=== PATIENT | female | born 1965 | race Caucasian/White ===

== ENCOUNTER 2017-12-16 15:37 | Outpatient (CLI) | payer OTHER ==
--- NOTE | 2017-12-16 21:07 | MRI ---
MRI OF LEFT KNEE PERFORMED WITHOUT CONTRAST ENHANCEMENT: 12/16/17 HISTORY: Left knee pain. Previous knee arthroscopy. The anterior cruciate ligament shows some increased signal change suggesting some mucoid degeneration but appears intact. Posterior cruciate ligament is unremarkable. The lateral meniscus is normal in shape and appearance. The free edge of the posterior horn of the me dial meniscus is slightly irregular and truncated in appearance and there is a small undersurface tea r associated with the body of the medial meniscus with meniscal subluxation. There is also some edema changes on the medial edge of the tibia. The medial and lateral collateral ligament, iliotibial band regions are unremarkable. There is some fissuring involving the apex of the patellar articular cartilage. Medial and lateral pa tellar retinaculum and quadriceps and patellar tendons are normal. There is some edema changes near t he tibial insertion of the anterior cruciate ligament. Changes are probably on the basis some element of degeneration of the ACL in conjunction with the medial compartment arthritis. IMPRESSION: 1. Free edge blunting to the posterior horn of the medial meniscus with meniscal protrusion of t he body of the meniscus and an undersurface tear in this region. I am not certain what portion of the posterior horn changes are related to meniscectomy change but the body changes are felt to be more a cute in nature. There is associated medial compartment arthritis. 2. Mucoid degeneration of the ACL and particularly pronounced at the level of the anterior media l band insertion onto the tibia. The edema changes could be related to abnormal stresses in this emil on related to the medial compartment arthritis although this is not fluid density. This could indicat e some early partial tearing of the anterior medial bundle fibers. POS: EMILIANA
== END 2017-12-16 15:38 | disposition home or self-care (01) ==
LOC: TBSIIMAG 15:37
PROVIDERS: ATTEND Orthopaedic Surgery
DX: M25.562 Pain in left knee (principal); S83.242A Other tear of medial meniscus, current injury, left knee, initial encounter

== ENCOUNTER 2017-12-21 17:19 | Outpatient (CLI) | payer OTHER ==
[2017-12-21 17:41] LABS: #Basophils 0.1 thou/uL (0.0-0.2); #Eosinphils 0.2 thou/uL (0.0-0.7); #Lymphocytes 2.2 thou/uL (1.20-3.40); #Monocytes 0.4 thou/uL (0.11-0.59); #Neutrophils 2.7 thou/uL (1.40-6.50); %Basophils 1.7 % (0.0-1.0); %Eosinophils 3.8 % (0.0-10.0); %Lymphocytes 38.6 % (21.0-51.0); %Monocytes 7.4 % (0.0-10.0); %Neutrophils 48.4 % (42.0-75.0); Hemoglobin 13.1 g/dL (12.0-16.0); Mean Corpuscular HGB CONC 33.8 g/dL (32.0-36.0); Mean Corpuscular Hemoglobin 29.1 pg (27.0-31.0); Mean Platelet Volume 7.3 fL (7.4-10.4); Platelet Count 262 thou/uL (130-400); RBC Distribution Width 12.9 % (11.5-14.5); Red Blood Cell (RBC) Count 4.51 mill/uL (4.20-5.40); White Blood Cell (WBC) Count 5.6 thou/uL (4.8-10.8)
[2017-12-21 18:11] LABS: Anion Gap 11 mmol/L (10-20); BUN (Urea Nitrogen) 11 mg/dL (9.8-20.1); Calc. Creatinine Clearance 0 mL/min (70-130); Calcium 9.3 mg/dL (7.8-10.44); Carbon Dioxide 27 mmol/L (22-29); Chloride 106 mmol/L (98-107); Estimated GFR-MDRD 77; Glucose 94 mg/dL (70-105); Potassium 4.1 mmol/L (3.5-5.1); Sodium 140 mmol/L (136-145)
== END 2017-12-21 17:20 | disposition home or self-care (01) ==
LOC: LABBT 17:19
PROVIDERS: ATTEND Orthopaedic Surgery
DX: Z01.818 Encounter for other preprocedural examination (principal); S83.207A Unspecified tear of unspecified meniscus, current injury, left knee, initial encounter
CPT/HCPCS: 80048; 85025; 93005; 93010

== ENCOUNTER 2017-12-23 05:32 | Day surgery (SDC) | payer OTHER ==
[2017-12-21 17:41] VITALS: BMI 29.5
[2017-12-23] MEDS ORDERED: CEFAZOLIN/Water 2 GM/20 ML SYRINGE ONE (05:59)
[2017-12-23] MEDS ORDERED: Lidocaine 2% w/Epinephrine 1:200K 20 ML VIAL ONE (06:16)
[2017-12-23] MEDS ORDERED: Bupivacaine PF 0.5% 30 ML VIAL ONE (06:17)
[2017-12-23] MEDS ORDERED: Propofol 500 MG/50 ML VIAL ONE ×2 (06:23→06:24)
[2017-12-23] MEDS ORDERED: Scopolamine 1.5 mg/72 hour Patch ONE (06:49)
[2017-12-23] MEDS ORDERED: Fentanyl 100 MCG/2 ML VIAL ONE (07:04)
--- NOTE | 2017-12-23 08:40 | OP ---
DATE OF PROCEDURE: 12/23/2017 PREOPERATIVE DIAGNOSIS: Left knee medial meniscal tear. POSTOPERATIVE DIAGNOSES: 1. Left knee medial meniscal tear. 2. The patient has significant area of grade 3 and 4 cartilage loss on the medial femoral condyle an d the trochlea. PROCEDURE: Left knee arthroscopy with partial medial meniscectomy. SURGEON: Sy Shetty M.D. PROTEIN SCIENTIST: None. BLOOD LOSS: Minimal. COMPLICATIONS: None. DISPOSITION: She did have general anesthetic as well as a local knee block. She went to the recover y room in stable condition. INDICATIONS: Vivian is an active 52-year-old female who comes in complaining of catching and signific ant pain in the medial area of the knee. An MRI found her to have a medial meniscus tear with a flap of tissue extruded into the gutter and at this time, she opted to have surgery. OPERATIVE PROCEDURE: After all appropriate consent forms were explained and signed, she was taken ba ck to the operating room and at this time was given general anesthetic. Once anesthesia was appropri ate, the tourniquet was placed on her left thigh and the leg was then prepped and draped in standard surgical fashion after placing it in an arthroscopic leg baeza. The limb was exsanguinated, tourniq uet was taken up to 300 mmHg. An inferolateral portal was established and the scope was placed into the knee joint. A needle localization technique was then used to make a medial working portal. Diag nostic arthroscopy commenced in the notch. The ACL and PCL were found to be intact. There was a sma ll cyst at the base of ACL. This was removed with the shaver. The femoral condyle was evaluated and the previous grade 4 lesion had filled in fully with fibrocartilaginous tissue and still was filled in and outlined nicely. There was no unstable chondral flaps in this area. The medial meniscus was evaluated and found to have a degenerative tear of essentially the entire posterior horn. She had a small flap of tissue in the posterior lateral aspect of the medial meniscus with a flap going up into the posterior notch. She also had a flap of tissue where the posterior horn and body meet and a fla p of tissue went down into the recess between the meniscal tissue and the tibia. Partial meniscectom y was performed with meniscal biter and shaver, removing all those tissues. Once this was done, a st able base was noted. The lateral compartment was evaluated and overall was found to be in good condi tion with intact meniscus femoral and tibial cartilage. The gutters were swept through and no loose bodies were noted. Small osteophyte was noted off the medial femur. The patellofemoral joint had a fair amount of scar tissue along the inferior pole of patella. This was debrided. It was noted that the patient had a large central area of grade 3 and 4 chondral wear which had been filled in with a fibrocartilaginous tissue on the trochlea. The patella had a small amount of crabmeat, but overall w as in pretty good condition. There was some scar tissue noted in the suprapatellar pouch and at this time, the scope was removed, knee was drained. Portals were closed with simple nylon stitch. A bul ky sterile dressing was applied and the tourniquet was let down. Toes pinked up nicely. The patient was awakened and taken to the recovery room in stable condition. All counts were correct at the end of the case. She received preoperative IV antibiotics.
[2017-12-23] MEDS ORDERED: CeleCOXIB 100 MG CAP ONE (09:05)
[2017-12-23] MEDS ORDERED: Lidocaine 1% PF 5 ML VIAL ONE (16:25)
[2017-12-23] MEDS ORDERED: Ondansetron PF 4 MG/2 ML Vial ONE (16:25)
[2017-12-23] MEDS ORDERED: PROPOFOL 200 MG/20 ML VIAL ONE (16:25)
== END 2017-12-23 09:34 | disposition home or self-care (01) ==
LOC: SDC 05:32
PROVIDERS: ATTEND Orthopaedic Surgery
PROC: 0SBD4ZZ Excision of Left Knee Joint, Percutaneous Endoscopic Approach (ICD-10-PCS; principal; 2017-12-23)
DX: S83.242A Other tear of medial meniscus, current injury, left knee, initial encounter (principal); Z98.51 Tubal ligation status; Z90.49 Acquired absence of other specified parts of digestive tract; Z98.890 Other specified postprocedural states
CPT/HCPCS: G8978-GP-CJ; G8979-GP-CJ; G8980-GP-CJ; J2001; J2405; J2704; J3010; S0020

== ENCOUNTER 2020-09-17 08:47 | Outpatient (CLI) | payer OTHER ==
[2020-09-17] MEDS ORDERED: Gadobenate Dimeglumine 529 MG/1 ML (20ML VIAL) ONE (09:15)
[2020-09-17] MEDS ORDERED: Iopamidol 300 61% 50 ML VIAL FS ONE (09:15)
[2020-09-17] MEDS ORDERED: Lidocaine 1% PF 10 ML AMP ONE (09:15)
[2020-09-17] MEDS ORDERED: EPINEPHrine 1 MG/ML AMP ONE (09:15)
--- NOTE | 2020-09-17 10:16 | RAD ---
PROCEDURE: Fluoroscopic right shoulder arthrogram INDICATION: Right shoulder pain COMPARISON: None TECHNIQUE: Informed consent was obtained. Preprocedure painter airbrush images were obtained of the right should er. The patient was placed supine on the fluoroscopic table. A timeout was performed. Site overlying the right shoulder was prepped and draped in the usual sterile fashion. Buffered 1% lidocai ne was administered into the overlying subcutaneous tissues. Under fluoroscopic guidance, a 22-gauge spinal needle was guided down into the right glenohumeral joint. Confirmation of needle loca lization was confirmed by injecting 1 cc of the buffered 1% lidocaine. Following this 7 6060of the dilute Multihance solution MR Mix: 23.5 mL solution containing 10 mL of 0.008 dilution of Multihance, 8 mL Isovue 300, 5 mL 1% Lidocaine, 0.5 mL of 1mg/mL Epinephrine was injected. Contrast was visualized within the right glenohumeral joint with fluoroscopy. The needle was removed. The injectio n site was then cleansed and bandage. The patient tolerated the injection without difficulty. Fluoroscopic time: 0.3minutes Fluoroscopic dose: 17.3mcg/sq m FINDINGS: Small calcification is seen involving the soft tissues overlying the right greater tuberosi ty suspicious for focus of calcific tendinosis. There is mild right AC joint osteoarthrosis. Visualized right lung is clear. IMPRESSION: Successful right shoulder arthrogram. The patient is to have a follow-up [facility]arthrogram of the [facility]. Please see this report for further details. Calcific tendinosis of the right shoulder. Mild AC joint of the right shoulder.
--- NOTE | 2020-09-17 11:43 | MRI ---
EXAM: MRI Upper Ext Jt Rt W Con DATE: 09/17/2020 10:30 AM INDICATION: Right shoulder pain concern for glenoid labral injury COMPARISON: None. FINDING: There is a full-thickness tear involving the anterior superior, superior, posterior superio r and posterior glenoid labrum extending from approximately the 2:00 through the 8:00 position. There is tear extension into the biceps anchor complex and proximal long head of biceps tendon, best seen on image 8 of series 7. The anterior inferior glenohumeral labral ligamentous complex is intact. The glenoid articular surface is normal-appearing. There are numerous subchondral cystlike ab normalities involving the posterior greater tuberosity. The rotator cuff is intact. Small focus of calcification is seen in the posterior supraspinatus measuring 6 mm without surrounding inflammatory change. Tiny amount of fluid is seen within the subacromial subdeltoid space. There is mild AC joint osteoarthrosis with an inferior projecting spur and osteophyte off the distal clavicle causing mild encroachment on the subjacent supraspinatus. The biceps tendon is located within the bicipital groove. IMPRESSION: 1. Large SLAP tear extending from approximately the 2:00 to the 8:00 position with tear extension int o the biceps anchor complex and proximal long head of the biceps tendon. 2. Calcific tendinosis of the posterior supraspinatus tendon, near the footprint. 3. Mild AC joint osteoarthrosis with mild encroachment on the subjacent supraspinatus.
[2020-09-17] MEDS ORDERED: Magnevist 469MG/ML 20 ML VIAL ONE (14:37)
== END 2020-09-17 08:48 | disposition home or self-care (01) ==
LOC: RAD 08:47
PROVIDERS: ATTEND Orthopaedic Surgery
DX: S43.431A Superior glenoid labrum lesion of right shoulder, initial encounter (principal); M19.011 Primary osteoarthritis, right shoulder; M67.813 Other specified disorders of tendon, right shoulder
CPT/HCPCS: 23350; A9577; A9579; J0171; J2001; Q9967

== ENCOUNTER 2020-11-18 08:12 | Outpatient (CLI) | payer OTHER ==
[2020-11-18 18:32] LABS: #Basophils 0.1 10x3/uL (0.0-0.2); #Eosinphils 0.2 10x3/uL (0.0-0.5); #Monocytes 0.4 10x3/uL (0.0-1.1); %Basophils 0.8 % (0.0-2.0); %Eosinophils 2.1 % (0.0-6.0); %Lymphocytes 37.1 % (18.0-47.0); %Monocytes 5.5 % (0.0-10.0); %Neutrophils 54.2 % (40.0-75.0); Hemoglobin 12.9 g/dL (12.0-16.0); Mean Corpuscular HGB CONC 32.7 G/DL (32.0-36.0); Mean Corpuscular Hemoglobin 28.7 PG (27.0-33.0); Mean Corpuscular Volume 87.8 fl (80.0-100.0); Mean Platelet Volume 10.4 fl (7.4-10.4); Platelet Count 249 10x3/uL (130-400); RBC Distribution Width 13.3 % (11.5-14.5); Red Blood Cell (RBC) Count 4.49 10x6/uL (3.90-5.20); White Blood Cell (WBC) Count 7.3 10x3/uL (4.5-11.0)
[2020-11-18 18:52] LABS: Anion Gap 13 mmol/L (10-20); BUN (Urea Nitrogen) 8 mg/dL (9.8-20.1); Calc. Creatinine Clearance 0 mL/min (70-130); Calcium 9.3 mg/dL (7.8-10.44); Carbon Dioxide 27 mmol/L (22-29); Chloride 105 mmol/L (98-107); Glucose 92 mg/dL (70-105); Sodium 141 mmol/L (136-145)
[2020-11-19 06:07] LABS: SARS-CoV-2 MS2 Positive; SARS-CoV-2 N Gene Negative; SARS-CoV-2 S Gene Negative; SARS-CoV-2 by NAA Not Detected (NotDetected); SARS-CoV-2 orf1ab Negative
== END 2020-11-18 08:13 | disposition home or self-care (01) ==
LOC: LABBT 08:12
PROVIDERS: ATTEND Orthopaedic Surgery
DX: Z01.818 Encounter for other preprocedural examination (principal); Z20.822 Contact with and (suspected) exposure to COVID-19; M24.111 Other articular cartilage disorders, right shoulder
CPT/HCPCS: 80048; 85025; 87635; 93005; 93010; U0003

== ENCOUNTER 2020-11-21 06:07 | Day surgery (SDC) | payer OTHER ==
[2020-11-21] MEDS ORDERED: Bupivacaine 0.25% HCL 30 ML VIAL ONE (06:44)
[2020-11-21] MEDS ORDERED: EPINEPHrine 1 MG/ML AMP ONE (06:44)
[2020-11-21] MEDS ORDERED: Sodium Chloride 0.9% 10 ML ONE (06:55)
[2020-11-21] MEDS ORDERED: Lidocaine 1% (PF) 30 ML VIAL ONE (06:55)
[2020-11-21] MEDS ORDERED: Midazolam HCl 2 mg/2 ml Vial ONE (06:55)
[2020-11-21] MEDS ORDERED: Fentanyl 100 MCG/2 ML VIAL ONE (06:55)
[2020-11-21] MEDS ORDERED: Fentanyl 100 MCG/2 ML VIAL IV PRN (08:10)
[2020-11-21] MEDS ORDERED: Ketorolac Tromethamine 30 MG/ML VIAL IVP PRN (08:15)
[2020-11-21] MEDS ORDERED: Ropivacaine 0.2% 550 ML 550 ML NERVE BLCK SCH (08:15)
[2020-11-21] MEDS ORDERED: Promethazine HCl 25 MG/ML VIAL IM PRN (08:15)
[2020-11-21] MEDS ORDERED: Ondansetron PF 4 MG/2 ML Vial IVP PRN (08:15)
[2020-11-21] MEDS ORDERED: HYDROcodone/Acetaminophen 10/325 mg Tablet PO PRN ×2 (08:15)
[2020-11-21] MEDS ORDERED: traMADol HCl 50 MG TAB PO PRN ×2 (08:15)
[2020-11-21] MEDS ORDERED: Zolpidem Tartrate 5 MG TAB PO PRN (08:15)
[2020-11-21] MEDS ORDERED: Ondansetron PF 4 MG/2 ML Vial ONE (09:16)
[2020-11-21] MEDS ORDERED: Ropivacaine 0.5% HCl/PF (150 MG/30 ML VIAL) ONE (09:16)
[2020-11-21] MEDS ORDERED: PROPOFOL 200 MG/20 ML VIAL ONE (09:16)
[2020-11-21] MEDS ORDERED: Ketorolac Tromethamine 30 MG/ML VIAL ONE (09:16)
[2020-11-21] MEDS ORDERED: Rocuronium Bromide 10 MG/ML (10ML VIAL) ONE (09:16)
--- NOTE | 2020-11-21 22:06 | OP ---
DATE OF PROCEDURE: 11/21/2020 PREOPERATIVE DIAGNOSIS: Right shoulder degenerative labral tear with biceps instability and acromioclavicular joint arthritis. POSTOPERATIVE DIAGNOSES: 1. Acromioclavicular joint arthritis. 2. Degenerative labral tear to include superior and posterior labrum with associated biceps instability. 3. Small partial undersurface tear of the supraspinatus amounting to less than 5% of the tendon. 4. Impingement. PROCEDURES PERFORMED: 1. Right shoulder arthroscopy with debridement and shaving of partial rotator cuff tear as well as degenerative labral tear. 2. Subacromial decompression. 3. Open distal clavicle excision. 4. Open biceps tenodesis. ASSESSMENT: Shakeel Campo PA-C. The clinic assistant surgeon was present throughout the distal clavicle resection and open biceps tenodesis portions of the procedure. He was present in performing distal clavicle excision as well as the open biceps tenodesis. We then closed all surgical wounds. BLOOD LOSS: 30 mL. ANESTHESIA: The patient had general anesthetic as well as preoperative block. IMPLANT: A 7 x 23 Bio[employer]posite Bio-Tenodesis screw. DISPOSITION: She did go to recovery room in stable condition. INDICATIONS: A 55-year-old active female who failed nonoperative treatment for shoulder problem and at this time, she is willing and wanted to have surgery on the shoulder. DESCRIPTION OF PROCEDURE: After all appropriate consent forms were explained and signed, she was taken to the operative room and at this time was given general anesthetic. She was rolled into the left lateral decubitus position. All bony prominences were well padded. The right shoulder and upper extremity were prepped and draped in standard surgical fashion. Bony anatomical landmarks were then drawn out. The subacromial space was infiltrated with Marcaine with epinephrine. Posterior portal was then established. Scope was placed into the shoulder joint. Anterior working portal was made using a needle localization technique. Diagnostic arthroscopy commenced and at this time, a small partial undersurface tear of the leading edge supraspinatus was noted. At this time, shaver was used to debride this small tear. The articular surface of the humeral head and glenoid were in good condition. X-ray pouch showed no loose bodies. The subscapularis was found to be intact. The entire superior labrum was found to have degenerative tearing and the labrum was atretic in appearance. This tearing continued posteriorly and at the posterior inferior angle at approximately 7 o'clock, there was traumatic lesion where a chunk of the labrum had balled up from what appeared to have been a previous injury. There was an associated injury to the cartilage on the humeral head in this area and I would engage in range of motion. Combination of shaver and [employer] was used to debride the labrum back to stable base. Once this was done, an 18-gauge needle was used to martinez the biceps tendon and place the stitch through it. The arthroscopic shaver was used to cut the biceps off its labral insertion superiorly. This was gently debrided. At this time, the scope was repositioned into the subacromial space. A lateral working portal was made and used to remove the bursa from off the underlying rotator cuff. The rotator cuff was found to be intact. The [employer] and shaver were used to perform small bony decompression and at this time, we also were able to make the AC joint. There was significant amount of calcific tissue and some small calcific loose bodies in the inferior portion of the AC joint that were cleaned out and removed with the [employer] and the shaver. It was felt at this time the distal clavicle excision was necessary. The needle was used to jojo the AC joint. The scope was removed and the shoulder was drained. A 15 blade was used to make an incision obliquely over the AC joint. Bovie was used to coagulate any brisk venous bleeding. Full-thickness periosteal flaps were taken to expose the AC joint. Hohmann retractors were placed anterior and posterior, and an oscillating saw was used to remove 1 cm of distal clavicle. A rasp was used to debride the edges and smooth off the bony edges. A small amount of bone wax was placed on the bleeding cancellous bone. The wound was thoroughly irrigated and dried. Multiple deep Vicryl sutures were then used to close our periosteal sleeve. 2-0 Vicryl were used to close subdermally. We then turned our attention to the biceps tenodesis. A 15 blade was again used to make a small incision down through skin. Bovie was used to coagulate any brisk venous bleeding. Deltoid fascia was incised sharply, and finger dissection was used to incise the deltoid in line with its fibers to get down to the underlying transverse humeral ligament. Transverse humeral ligament was incised and opened back exposing the biceps tendon. This was pulled onto the wound. The bicipital groove was cleaned out and any excessive venous bleeding was coagulated. We then sutured the biceps tendon, cutting off and removing from the field the intra-articular portion of the biceps tendon. We then placed our pin, reamed with a 7 mm reamer to a depth of 25, and placed a [employer] 7 x 23 Bio-Tenodesis screw. Sutures were tied over top of this in standard fashion. We thoroughly irrigated and dried. We then allowed the deltoid to close upon itself. A running Vicryl was used to close our deltoid fascia. 2-0 Vicryl and nylon sutures were used to close this incision. Distal clavicle excision was then closed with nylon sutures as well. Simple stitches were used to close our portals. Bulky sterile dressing was applied. The patient was then awakened, taken to recovery room in stable condition. All counts were correct at the end of the case. She did receive preoperative IV antibiotics. Job ID: [id number]
== END 2020-11-21 12:42 | disposition home or self-care (01) ==
LOC: SDC 06:07
PROVIDERS: ATTEND Orthopaedic Surgery
PROC: 0PB90ZZ Excision of Right Clavicle, Open Approach (ICD-10-PCS; principal; 2020-11-21)
PROC: 0RNJ4ZZ Release Right Shoulder Joint, Percutaneous Endoscopic Approach (ICD-10-PCS; principal; 2020-11-21)
PROC: 0LS30ZZ Reposition Right Upper Arm Tendon, Open Approach (ICD-10-PCS; principal; 2020-11-21)
PROC: 0LQ14ZZ Repair Right Shoulder Tendon, Percutaneous Endoscopic Approach (ICD-10-PCS; principal; 2020-11-21)
DX: S43.431A Superior glenoid labrum lesion of right shoulder, initial encounter (principal); M19.011 Primary osteoarthritis, right shoulder; Z79.899 Other long term (current) drug therapy
CPT/HCPCS: A4306; C1713; J0171; J0690; J2001; J2250; J2795; J3010; S0020

== ENCOUNTER 2023-07-21 09:28 | Outpatient (CLI) | payer OTHER | END 2023-07-21 09:29 | disposition home or self-care (01) | LOC: SCSMRI 09:28 | PROVIDERS: ATTEND Family Medicine | DX: S89.92XD Unspecified injury of left lower leg, subsequent encounter (principal); S80.02XD Contusion of left knee, subsequent encounter; S83.242D Other tear of medial meniscus, current injury, left knee, subsequent encounter; M22.2X2 Patellofemoral disorders, left knee; M24.19 Other articular cartilage disorders, other specified site ==

== ENCOUNTER 2025-01-10 14:46 | Outpatient (CLI) | payer OTHER | END 2025-01-10 14:47 | disposition home or self-care (01) | LOC: BICMAMMO 14:46 | PROVIDERS: ATTEND Family Medicine | DX: Z12.31 Encounter for screening mammogram for malignant neoplasm of breast (principal); N64.89 Other specified disorders of breast | CPT/HCPCS: 77063; 77067 ==